=== PATIENT | female | born 1970 | race African-American/Black ===

== ENCOUNTER 2016-12-01 22:41 | Emergency (ER) | payer MEDICAID, OTHER ==
[~2016-12-01] VITALS: Ht 149.9 cm; Wt 93.4 kg
[~2016-12-01 22:41] MED LIST: LYRICA100 MG PO; NORCO 10/325 MG1 TAB PO; PREVACID30 MG PO; PROVENTIL HFA M18 GM INH; VIMOVO 20 MG-501 TCP PO; ZOLOFT50 MG PO
[2016-12-01 22:45] VITALS: BP 132/79
--- NOTE | 2016-12-01 23:24 | NUR ---
Patient ambulated to bed 05.
--- NOTE | 2016-12-01 23:30 | NUR ---
PT IS 46/F BIB SELF TO ED WITH C/O CHEST PAIN 2 DAYS AGO WITH HEADACHE, BLURRY EYES, 10/10 PAIN LEVEL. PT STATES MED HX: ASTHMA, GASTRITITS, FIBROMYLGIA. DENIES N/V/D; SKIN IS PINK/WARM/DRY; AAOX4 WITH EVEN AND STEADY GAIT; LUNGS CLEAR BL; HR EVEN AND REGULAR; PT DENIES ANY FEVER, SOB, OR COUGH AT THIS TIME; PATIENT STATES PAIN OF 10/10 AT THIS TIME; VSS; PATIENT POSITIONED FOR COMFORT; HOB ELEVATED; BEDRAILS UP X2; BED DOWN. ER MD MADE AWARE OF PT STATUS.
--- NOTE | 2016-12-01 23:47 | NUR ---
XRAY at bedside.
--- NOTE | 2016-12-01 23:58 | NUR ---
Patient being evaluated by physician at bedside.
[2016-12-02] MEDS ORDERED: KETOROLAC 30 MG/ML VIAL IM ONE (00:10)
[2016-12-02] MEDS ORDERED: HYDROcodone/APAP 5/325 MG 1 TAB TAB PO ONE (00:15)
[2016-12-02 01:08] VITALS: BP 122/72
--- NOTE | 2016-12-02 01:09 | NUR ---
Patient discharged with v/s stable. Written and verbal after care instructions given and explained. Patient alert, oriented and verbalized understanding of instructions. Ambulatory with steady gait. All questions addressed prior to discharge. ID band removed. Patient advised to follow up with PMD. Rx of NORCO AND NAPROSYN given. Patient educated on indication of medication including possible reaction and side effects. Opportunity to ask questions provided and answered.
== END 2016-12-02 01:09 | disposition home or self-care (01) ==
LOC: MED 22:41
DX: R07.89 Other chest pain (principal); Z88.6 Allergy status to analgesic agent; J45.909 Unspecified asthma, uncomplicated; Z90.49 Acquired absence of other specified parts of digestive tract
CPT/HCPCS: 36415; 71010; 80048; 82550; 82553; 84484; 85025; 93005; 96372; 99285; J1885; Q0092

== ENCOUNTER 2018-08-02 18:25 | Emergency (ER) | payer MEDICAID ==
[~2018-08-02] VITALS: Ht 149.9 cm; Wt 98.0 kg
[~2018-08-02 18:25] MED LIST changes: +ACET-787 PO; +ALBU0.0912 INH; +LANS30EC3 PO; -LYRICA100 MG PO; -NORCO 10/325 MG1 TAB PO; +PREG100C PO; -PREVACID30 MG PO; -PROVENTIL HFA M18 GM INH; +SERT50TA PO; -VIMOVO 20 MG-501 TCP PO; -ZOLOFT50 MG PO; +[UNRECOGNIZED DRUG - CODE] PO
[2018-08-02 19:40] VITALS: BP 134/83
[2018-08-02] MEDS: KETOROLAC 60 MG/2 ML VIAL IM ONE (20:43)
[2018-08-02 20:53] VITALS: BP 137/83
== END 2018-08-02 20:53 | disposition home or self-care (01) ==
LOC: MED 18:25
DX: J32.0 Chronic maxillary sinusitis (principal); J32.2 Chronic ethmoidal sinusitis; J45.909 Unspecified asthma, uncomplicated; I10 Essential (primary) hypertension; Z88.1 Allergy status to other antibiotic agents; Z88.6 Allergy status to analgesic agent; Z91.018 Allergy to other foods; Z79.899 Other long term (current) drug therapy
CPT/HCPCS: 96372; 99283; J1885

== ENCOUNTER 2018-09-12 10:13 | Emergency (ER) | payer MEDICAID ==
[~2018-09-12] VITALS: Ht 149.9 cm; Wt 98.4 kg
[2018-09-12 10:49] VITALS: BP 148/90
--- NOTE | 2018-09-12 12:36 | NUR ---
PT TO ER BED 2
[2018-09-12] MEDS ORDERED: ALBUTEROL SULFATE/IPRATROPIU 3 ML SOL IH ONE (13:50)
[2018-09-12] MEDS ORDERED: CLINDAMYCIN 600 MG/4 ML VIAL IM ONE (13:50)
[2018-09-12] MEDS ORDERED: diphenhydrAMINE 50 MG/ML VIAL IM ONE (13:50)
[2018-09-12] MEDS ORDERED: DEXAMETHASONE 10 MG/ML VIAL IM ONE (13:50)
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
[2018-09-12 16:14] VITALS: BP 148/90
--- NOTE | 2018-09-12 16:15 | NUR ---
Patient discharged with v/s stable. Written and verbal after care instructions given and explained. Patient alert, oriented and verbalized understanding of instructions. Ambulatory with steady gait. All questions addressed prior to discharge. ID band removed. Patient advised to follow up with PMD. Rx of PROMETHAZINE, PREDNISONE, LEVAQUIN given. Patient educated on indication of medication including possible reaction and side effects. Opportunity to ask questions provided and answered.
== END 2018-09-12 16:15 | disposition home or self-care (01) ==
LOC: MED 10:13
DX: J32.9 Chronic sinusitis, unspecified (principal); J40 Bronchitis, not specified as acute or chronic; I10 Essential (primary) hypertension; Z88.1 Allergy status to other antibiotic agents; Z88.8 Allergy status to other drugs, medicaments and biological substances; Z91.018 Allergy to other foods
CPT/HCPCS: 36415; 94640; 96372; 99283; J1100; J1200; J3490; J7620

== ENCOUNTER 2018-10-06 15:12 | Emergency (ER) | payer MEDICAID ==
[~2018-10-06] VITALS: Ht 149.9 cm; Wt 100.2 kg
[2018-10-06 15:49] VITALS: BP 149/78
--- NOTE | 2018-10-06 15:54 | NUR ---
PT VSS; AMB TO LOBBY WITH CHILDREN
--- NOTE | 2018-10-06 16:26 | NUR ---
PT TO ER BED 2
--- NOTE | 2018-10-06 16:35 | NUR ---
PT BIB SELF FOR R ARM PAIN X3 WEEKS. PT REPORTS INTERMITTENT NUMBING/TINGLING PAIN AT 10/10 THAT RADIATES UP R ARM. PT TREATS WITH NORCO AND STATES THAT IT TAKES THE PAIN AWAY BUT THE TINGLING IS STILL THERE. VSS ER TO SEE PT. MEDHX:HTN, FIBROMYALGA RX:NORCO, LYLUISA
[2018-10-06] MEDS ORDERED: KETOROLAC 30 MG/ML VIAL IM ONE (16:45)
--- NOTE | 2018-10-06 17:56 | NUR ---
Patient discharged with v/s stable. Written and verbal after care instructions given and explained. Patient verbalized understanding. Ambulatory with steady gait. All questions addressed prior to discharge. Advised to follow up with PMD.
[2018-10-06 17:57] VITALS: BP 149/78
== END 2018-10-06 17:56 | disposition home or self-care (01) ==
LOC: MED 15:12
DX: M54.12 Radiculopathy, cervical region (principal); M79.7 Fibromyalgia; J45.909 Unspecified asthma, uncomplicated; I10 Essential (primary) hypertension; Z79.891 Long term (current) use of opiate analgesic; Z79.899 Other long term (current) drug therapy; Z88.6 Allergy status to analgesic agent; Z88.1 Allergy status to other antibiotic agents; Z91.018 Allergy to other foods
CPT/HCPCS: 96372; 99283; J1885

== ENCOUNTER 2019-04-04 21:00 | Emergency (ER) | payer MEDICAID ==
[~2019-04-04] VITALS: Ht 149.9 cm; Wt 99.8 kg
[2019-04-04 21:20] VITALS: BP 127/60
--- NOTE | 2019-04-04 21:26 | NUR ---
TO 'LOBBY A/W BED AMBULATORY
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
[2019-04-04] MEDS: MORPHINE SULFATE 4 MG/ML SYR IM ONE (23:45)
--- NOTE | 2019-04-05 00:10 | NUR ---
Dr. Rogers examining patient.
[2019-04-05] MEDS: ONDANSETRON 4 MG ODT PO ONE (00:19)
[2019-04-05 00:50] VITALS: BP 130/78
--- NOTE | 2019-04-05 00:50 | NUR ---
Patient discharged with v/s stable. Written and verbal after care instructions given and explained. Patient alert, oriented and verbalized understanding of instructions. Ambulatory with steady gait. All questions addressed prior to discharge. ID band removed. Patient advised to follow up with PMD. Rx of MOTRIN, ZOFRAN given. Patient educated on indication of medication including possible reaction and side effects. Opportunity to ask questions provided and answered. ACCOMPANIED BY FAMILY. STATES NO PAIN AT TIME OF DISCHARGE.
== END 2019-04-05 00:50 | disposition home or self-care (01) ==
LOC: MED 21:00
DX: R07.89 Other chest pain (principal); J45.909 Unspecified asthma, uncomplicated; I10 Essential (primary) hypertension; Z98.890 Other specified postprocedural states; Z79.899 Other long term (current) drug therapy; Z79.891 Long term (current) use of opiate analgesic; Z79.51 Long term (current) use of inhaled steroids; Z88.0 Allergy status to penicillin; Z88.6 Allergy status to analgesic agent; Z91.018 Allergy to other foods; V89.2XXA Person injured in unspecified motor-vehicle accident, traffic, initial encounter; Y93.89 Activity, other specified; Y92.410 Unspecified street and highway as the place of occurrence of the external cause; Y99.8 Other external cause status
CPT/HCPCS: 71045; 96372; 99283; J2270; Q0162

== ENCOUNTER 2020-01-05 21:10 | Emergency (ER) | payer MEDICAID, OTHER ==
[~2020-01-05] VITALS: Ht 149.9 cm; Wt 101.6 kg
[2020-01-05 21:17] VITALS: BP 138/82
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
--- NOTE | 2020-01-05 21:22 | NUR ---
PT AMBULATED TO BED 06 WTIH STEADY GAIT.
--- NOTE | 2020-01-05 21:53 | NUR ---
STOOD BEDSIDE WHILE ERMD PERFORMED VAGINAL EXAMINATION. PT TOLERATED WELL.
[2020-01-05 22:11] VITALS: BP 138/82
== END 2020-01-05 22:11 | disposition home or self-care (01) ==
LOC: MED 21:10
DX: I87.8 Other specified disorders of veins (principal); J45.909 Unspecified asthma, uncomplicated; I10 Essential (primary) hypertension; Z88.1 Allergy status to other antibiotic agents; Z88.8 Allergy status to other drugs, medicaments and biological substances; Z91.018 Allergy to other foods; Z79.899 Other long term (current) drug therapy
CPT/HCPCS: 99283; 99284

== ENCOUNTER 2020-04-04 12:40 | Emergency (ER) | payer OTHER ==
[~2020-04-04] VITALS: Ht 149.9 cm; Wt 99.8 kg
[~2020-04-04 12:40] MED LIST changes: -ACET-787 PO; +HYDR-5191 PO
[2020-04-04 12:44] VITALS: BP 155/101
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
[2020-04-04] MEDS ORDERED: ONDANSETRON 4 MG ODT PO ONE (13:45)
[2020-04-04] MEDS ORDERED: HYDROcodone/APAP 5/325 MG 1 TAB TAB PO ONE (13:45)
--- NOTE | 2020-04-04 13:45 | NUR ---
AUTOMOTIVE PRODUCT ENGINEER AT BEDSIDE
--- NOTE | 2020-04-04 13:51 | NUR ---
TO CT SCAN VIA RWACO
[2020-04-04 14:33] LABS: BASOPHILS % (AUTO) 0.4 % (0.0-2.0); EOSINOPHILS % (AUTO) 0.1 % (0.0-4.0); HEMATOCRIT 40.2 % (36-48); HEMOGLOBIN 13.7 g/dL (12.0-16.0); LYMPHOCYTES % (AUTO) 12.9 % (20.5-51.1); MEAN CORPUSCULAR HEMOGLOBIN 34 pg (27-31); MEAN CORPUSCULAR HGB CONC 34 g/dL (33-37); MEAN CORPUSCULAR VOLUME 100.6 fL (80-94); MONOCYTES # (AUTO) 0.3 K/uL (0.8-1.0); NEUTROPHILS # (AUTO) 6.6 K/uL (1.8-7.7); NEUTROPHILS % (AUTO) 82.6 % (42.2-75.2); PLATELET COUNT (AUTO) 220 K/uL (140-450); RED BLOOD CELL COUNT(AUTO) 3.99 MIL/uL (4.20-5.40); RED CELL DISTRIBUTION WIDTH 13.2 % (11.6-13.7)
[2020-04-04 14:35] LABS: ANION GAP 11.3 (8-16); CARBON DIOXIDE 24.6 mmol/L (21-32); CREATININE 0.9 mg/dL (0.6-1.3); POTASSIUM 3.9 mmol/L (3.5-5.1)
[2020-04-04 14:41] LABS: TOTAL BILIRUBIN 0.3 mg/dL (0.0-1.0)
[2020-04-04] MEDS ORDERED: LIDOCAINE 2% 1000 MG/50 ML VIAL INJ ONE (15:00)
[2020-04-04] MEDS ORDERED: LIDOCAINE MPF 1% 10 MG/ML VIAL INJ ONE (15:05)
[2020-04-04 15:24] VITALS: BP 147/92
--- NOTE | 2020-04-04 15:24 | NUR ---
Patient discharged with v/s stable. Written and verbal after care instructions given and explained. Patient alert, oriented and verbalized understanding of instructions. Ambulatory with steady gait. All questions addressed prior to discharge. ID band removed. Patient advised to follow up with PMD. Rx of NORCO AND ZOFRAN given. Patient educated on indication of medication including possible reaction and side effects. Opportunity to ask questions provided and answered.
== END 2020-04-04 15:24 | disposition home or self-care (01) ==
LOC: MED 12:40
DX: S01.81XA Laceration without foreign body of other part of head, initial encounter (principal); S60.222A Contusion of left hand, initial encounter; S09.93XA Unspecified injury of face, initial encounter; I10 Essential (primary) hypertension; J45.909 Unspecified asthma, uncomplicated; Z88.6 Allergy status to analgesic agent; Z88.1 Allergy status to other antibiotic agents; Z91.018 Allergy to other foods; Z79.899 Other long term (current) drug therapy; X58.XXXA Exposure to other specified factors, initial encounter; Y93.89 Activity, other specified; Y92.89 Other specified places as the place of occurrence of the external cause; Y99.8 Other external cause status
CPT/HCPCS: 12011; 36415; 70450; 70486; 72125; 73130; 80053; 85025; 99285; J2001; Q0162

== ENCOUNTER 2020-04-09 15:25 | Emergency (ER) | payer OTHER ==
[~2020-04-09] VITALS: Ht 149.9 cm; Wt 99.8 kg
[2020-04-09 15:37] VITALS: BP 143/89
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
[2020-04-09 17:06] VITALS: BP 143/89
== END 2020-04-09 17:06 | disposition home or self-care (01) ==
LOC: MED 15:25
DX: S05.42XD Penetrating wound of orbit with or without foreign body, left eye, subsequent encounter (principal); I10 Essential (primary) hypertension; J45.909 Unspecified asthma, uncomplicated; Z88.1 Allergy status to other antibiotic agents; Z88.6 Allergy status to analgesic agent; Z91.018 Allergy to other foods; X58.XXXD Exposure to other specified factors, subsequent encounter
CPT/HCPCS: 99282

== ENCOUNTER 2021-05-09 21:25 | Emergency (ER) | payer OTHER ==
[~2021-05-09] VITALS: Ht 149.9 cm; Wt 102.1 kg
[2021-05-09 21:32] VITALS: BP 158/71
--- NOTE | 2021-05-09 21:32 | NUR ---
TO BED AMBULATORY
[2021-05-09] MEDS ORDERED: KETOROLAC 30 MG/ML VIAL IM ONE (22:25)
[2021-05-09] MEDS ORDERED: ACETAMINOPHEN EXTRA STRENGTH 500 MG TAB PO ONE (22:25)
[2021-05-09] MEDS ORDERED: SUD30 PO (23:00)
[2021-05-09] MEDS ORDERED: LORA-1048 PO (23:00)
[2021-05-09] MEDS ORDERED: ONDANSETRON 4 MG ODT PO ONE (23:00)
[2021-05-09] MEDS ORDERED: FLONAS NS (23:00)
--- NOTE | 2021-05-10 | NUR ---
Patient discharged with v/s stable. Written and verbal after care instructions given and explained. Patient alert, oriented and verbalized understanding of instructions. Ambulatory with steady gait. All questions addressed prior to discharge. ID band removed. Patient advised to follow up with PMD. Rx of Flonase nasal,Loratadine,sudafed given. Patient educated on indication of medication including possible reaction and side effects. Opportunity to ask questions provided and answered.
[2021-05-10 00:02] VITALS: BP 158/71
[2021-05-10] MEDS ORDERED: LORA-1048 PO ×2 (00:18→01:08)
[2021-05-10] MEDS ORDERED: FLONAS NS ×2 (00:18→01:08)
[2021-05-10] MEDS ORDERED: SUD30 PO ×2 (00:18→01:08)
== END 2021-05-10 | disposition home or self-care (01) ==
LOC: MED 21:25
DX: J30.9 Allergic rhinitis, unspecified (principal); R09.81 Nasal congestion
CPT/HCPCS: 96372; 99283; J1885; Q0162

== ENCOUNTER 2022-05-04 19:56 | Emergency (ER) | payer OTHER ==
[~2022-05-04] VITALS: Ht 149.9 cm; Wt 102.5 kg
[~2022-05-04 19:56] MED LIST changes: +FLONAS NS; +LORA-1048 PO; +SUD30 PO
[2022-05-04 21:31] VITALS: BP 192/101
--- NOTE | 2022-05-04 21:35 | NUR ---
PT TO LOBBY VIA W/C.
--- NOTE | 2022-05-04 23:42 | NUR ---
PT TO BED 2 VIA W/C
--- NOTE | 2022-05-05 00:05 | NUR ---
Dr. Sanders examining patient.
[2022-05-05] MEDS ORDERED: MORPHINE SULFATE 4 MG/ML SYR IM ONE (00:15)
[2022-05-05] MEDS ORDERED: ACET-8386 PO (01:45)
[2022-05-05] MEDS ORDERED: NAPR-54 PO (01:45)
[2022-05-05 02:28] VITALS: BP 149/79
[2022-05-06] MEDS ORDERED: ALBU0.0912 INH (19:57)
[2022-05-06] MEDS ORDERED: PRED20TA5 PO (19:57)
== END 2022-05-05 02:30 | disposition home or self-care (01) ==
LOC: MED 19:56
DX: M25.562 Pain in left knee (principal); Z88.0 Allergy status to penicillin; Z88.1 Allergy status to other antibiotic agents; Z88.8 Allergy status to other drugs, medicaments and biological substances; Z91.018 Allergy to other foods
CPT/HCPCS: 29505; 73562; 96372; 99285; J2270

== ENCOUNTER 2022-05-06 19:03 | Emergency (ER) | payer OTHER ==
[~2022-05-06] VITALS: Ht 149.9 cm; Wt 101.2 kg
[~2022-05-06 19:03] MED LIST changes: +NAPR-54 PO
[2022-05-06 19:10] VITALS: BP 131/81
--- NOTE | 2022-05-06 19:10 | NUR ---
[facility] TO ER BED 11
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
--- NOTE | 2022-05-06 19:24 | NUR ---
Pt report given to ZANE GONSALEZ. Transfer of care at this time.
[2022-05-06] MEDS ORDERED: ALBUTEROL 0.083% 2.5 MG/3 ML NEBU INH ONE (19:25)
[2022-05-06] MEDS ORDERED: ALBUTEROL SULFATE/IPRATROPIU 3 ML SOL IH ONE (19:25)
[2022-05-06] MEDS ORDERED: predniSONE 20 MG TAB PO ONE (19:25)
--- NOTE | 2022-05-06 19:29 | NUR ---
RT AT BEDSIDE.
--- NOTE | 2022-05-06 19:40 | NUR ---
MD MADSEN AT BEDSIDE
--- NOTE | 2022-05-06 19:48 | NUR ---
PATIENT AMBULATED TO AND BACK TO BED 11
[2022-05-06] MEDS ORDERED: ALBU0.0912 INH (19:57)
[2022-05-06] MEDS ORDERED: PRED20TA5 PO (19:57)
[2022-05-06 20:23] VITALS: BP 131/81
--- NOTE | 2022-05-06 20:23 | NUR ---
Patient discharged with v/s stable. Written and verbal after care instructions given and explained. Patient alert, oriented and verbalized understanding of instructions. Ambulatory with steady gait. All questions addressed prior to discharge. ID band removed. Patient advised to follow up with PMD. Rx of ALBUTEROL, AND DELTASONE given. Patient educated on indication of medication including possible reaction and side effects. Opportunity to ask questions provided and answered.
== END 2022-05-06 20:23 | disposition home or self-care (01) ==
LOC: MED 19:03
DX: J45.901 Unspecified asthma with (acute) exacerbation (principal); E11.9 Type 2 diabetes mellitus without complications; K21.9 Gastro-esophageal reflux disease without esophagitis; I10 Essential (primary) hypertension; Z88.0 Allergy status to penicillin; Z88.1 Allergy status to other antibiotic agents; Z88.6 Allergy status to analgesic agent; Z91.018 Allergy to other foods; Z79.899 Other long term (current) drug therapy; Z98.890 Other specified postprocedural states
CPT/HCPCS: 99283; J7512; J7613

== ENCOUNTER 2022-12-02 19:47 | Emergency (ER) | payer MEDICAID, OTHER ==
[~2022-12-02] VITALS: Ht 149.9 cm; Wt 101.6 kg
[~2022-12-02 19:47] MED LIST changes: +PRED20TA5 PO
[2022-12-02 20:00] VITALS: BP 134/72
--- NOTE | 2022-12-02 20:03 | NUR ---
to bed ambulatory
[2022-12-02] MEDS ORDERED: TETRACAINE 1% 2 ML AMP INJ ONE (20:35)
[2022-12-02] MEDS ORDERED: FLUORESCEIN OPTH STRIP 1 MG ONE (21:34)
--- NOTE | 2022-12-02 21:47 | NUR ---
Dr. Meredith examining patient.
[2022-12-02] MEDS ORDERED: FLUORESCEIN OPTH STRIP 1 MG OP ONE (21:55)
[2022-12-02] MEDS ORDERED: ACET-10509 PO (21:57)
[2022-12-02] MEDS ORDERED: ERYT5OIN51 OP (21:57)
[2022-12-02 22:26] VITALS: BP 134/72
--- NOTE | 2022-12-02 22:26 | NUR ---
Pt seen and evaluated by EDELMIRA
== END 2022-12-02 22:26 | disposition home or self-care (01) ==
LOC: MED 19:47
DX: H53.143 Visual discomfort, bilateral (principal); K21.9 Gastro-esophageal reflux disease without esophagitis; I10 Essential (primary) hypertension; E11.9 Type 2 diabetes mellitus without complications; J45.909 Unspecified asthma, uncomplicated; Z88.1 Allergy status to other antibiotic agents; Z88.8 Allergy status to other drugs, medicaments and biological substances; Z79.82 Long term (current) use of aspirin; Z91.018 Allergy to other foods; Z79.4 Long term (current) use of insulin; Z79.899 Other long term (current) drug therapy
CPT/HCPCS: 99283; J3490

== ENCOUNTER 2023-02-01 18:34 | Emergency (ER) | payer MEDICAID ==
[~2023-02-01] VITALS: Ht 152.4 cm; Wt 104.3 kg
[~2023-02-01 18:34] MED LIST changes: +ACET-10509 PO; +ERYT5OIN51 OP
[2023-02-01 18:59] VITALS: BP 139/83; PULSE 80; RESP 18; TEMP 98.1; O2SAT 98
[2023-02-01] MEDS ORDERED: FAMOTIDINE 20 MG TAB PO ONE (19:25)
[2023-02-01] MEDS ORDERED: ACETAMINOPHEN 325 MG TAB PO ONE (19:25)
[2023-02-01] MEDS ORDERED: predniSONE 20 MG TAB PO ONE (19:25)
[2023-02-01] MEDS ORDERED: diphenhydrAMINE 50 MG CAP PO ONE ×2 (19:25→20:32)
[2023-02-01] MEDS ORDERED: predniSONE 20 MG TAB ONE (20:31)
[2023-02-01] MEDS ORDERED: FAMOTIDINE 20 MG TAB ONE (20:32)
[2023-02-01] MEDS ORDERED: ACETAMINOPHEN EXTRA STRENGTH 500 MG TAB ONE (20:33)
[2023-02-01] MEDS ORDERED: DIPH25TA41 PO (21:34)
[2023-02-01] MEDS ORDERED: PRED20TA5 PO (21:34)
--- NOTE | 2023-02-01 21:42 | NUR ---
pt on chair. A/Ox4. not in distress. chest rise and fall symmetrical. no complain of pain.
[2023-02-01 21:43] VITALS: BP 139/83; PULSE 80; RESP 18; TEMP 98.1; O2SAT 98
--- NOTE | 2023-02-01 21:43 | NUR ---
Patient discharged with v/s stable. Written and verbal after care instructions given and explained. Patient alert, oriented and verbalized understanding of instructions. Ambulatory with steady gait. All questions addressed prior to discharge. ID band removed. Patient advised to follow up with PMD. Rx given to pt. Patient educated on indication of medication including possible reaction and side effects. Opportunity to ask questions provided and answered.
== END 2023-02-01 21:43 | disposition home or self-care (01) ==
LOC: MED 18:34
DX: T78.40XA Allergy, unspecified, initial encounter (principal); J45.909 Unspecified asthma, uncomplicated; E11.9 Type 2 diabetes mellitus without complications; K21.9 Gastro-esophageal reflux disease without esophagitis; I10 Essential (primary) hypertension; Z88.0 Allergy status to penicillin; Z88.1 Allergy status to other antibiotic agents; Z88.8 Allergy status to other drugs, medicaments and biological substances; Z91.018 Allergy to other foods; Z79.899 Other long term (current) drug therapy; X58.XXXA Exposure to other specified factors, initial encounter
CPT/HCPCS: 99291; J7512; Q0163; 99284

== ENCOUNTER 2023-11-30 17:27 | Emergency (ER) | payer MEDICAID ==
[~2023-11-30] VITALS: Ht 149.9 cm; Wt 101.2 kg
[~2023-11-30 17:27] MED LIST changes: +DIPH25TA41 PO; +HYDR-5071 PO; -HYDR-5191 PO; +NAPR-337 PO; -NAPR-54 PO
[2023-11-30 17:32] VITALS: BP 136/86; PULSE 101; RESP 19; TEMP 97.1; O2SAT 96
[2023-11-30] MEDS: KETOROLAC 30 MG/ML VIAL IM ONE (18:05)
[2023-11-30] MEDS ORDERED: LID5T TP (20:13)
[2023-11-30] MEDS ORDERED: METH-1681 PO (20:13)
== END 2023-11-30 20:17 | disposition home or self-care (01) ==
LOC: MED 17:27
DX: M17.11 Unilateral primary osteoarthritis, right knee (principal); R22.41 Localized swelling, mass and lump, right lower limb; J45.909 Unspecified asthma, uncomplicated; E11.9 Type 2 diabetes mellitus without complications; K21.9 Gastro-esophageal reflux disease without esophagitis; I10 Essential (primary) hypertension; Z88.0 Allergy status to penicillin; Z79.899 Other long term (current) drug therapy; Z79.4 Long term (current) use of insulin; Z88.1 Allergy status to other antibiotic agents; Z79.82 Long term (current) use of aspirin; Z91.018 Allergy to other foods
CPT/HCPCS: 73562; 93971; 96372; 99285

== ENCOUNTER 2024-05-05 23:02 | Emergency (ER) | payer MEDICAID ==
[~2024-05-05] VITALS: Ht 149.9 cm; Wt 104.3 kg
[~2024-05-05 23:02] MED LIST changes: -ACET-10509 PO; +ACET500T99 PO; +LID5T TP; +METH-1681 PO
[2024-05-05 23:08] VITALS: BP 137/62; PULSE 70; RESP 16; TEMP 98.1; O2SAT 100
[2024-05-06 01:39] LABS: BILIRUBIN,URINE NEGATIVE (NEGATIVE); BLOOD, URINE NEGATIVE (NEGATIVE); COLOR,URINE YELLOW (YELLOW); LEUKOCYTE ESTERASE ,URINE NEGATIVE (NEGATIVE); NITRITE, URINE NEGATIVE (NEGATIVE); PROTEIN,URINE NEGATIVE (NEGATIVE); UGLUCOSE NEGATIVE (NEGATIVE); UROBILINOGEN,URINE 0.2 EU/dL (0.2 - 1)
[2024-05-06 01:51] LABS: APPEARANCE,URINE SLIGHTLY HAZY (CLEAR)
[2024-05-06 01:52] LABS: BACTERIA,URINE 1+ /HPF (None Seen); RBC,URINE 0-5 /HPF (0-5); SQUAMOUS EPITHELIAL CELL,UR 20-50 /LPF (0-3 (FEW)); WBC,URINE 0-5 /HPF (0-5)
[2024-05-06] MEDS: KETOROLAC 60 MG/2 ML VIAL IM ONE (02:06)
[2024-05-06] MEDS ORDERED: CHLO-1090 PO (02:20)
== END 2024-05-06 02:31 | disposition home or self-care (01) ==
LOC: MED 23:02
DX: R51.9 Headache, unspecified (principal); J45.909 Unspecified asthma, uncomplicated; E11.9 Type 2 diabetes mellitus without complications; K21.9 Gastro-esophageal reflux disease without esophagitis; I10 Essential (primary) hypertension; Z98.890 Other specified postprocedural states; Z79.899 Other long term (current) drug therapy; Z88.0 Allergy status to penicillin; Z88.6 Allergy status to analgesic agent; Z91.018 Allergy to other foods
CPT/HCPCS: 81001; 81025; 96372; 99283; J1885